=== PATIENT | female | born 1945 | race Caucasian/White ===

== ENCOUNTER 2020-09-04 18:31 | Emergency (ER) | payer MEDICARE, BC ==
[~2020-09-04 18:31] MED LIST: BUTALB-ACETAMI1 EACH PO
[2020-09-04] MEDS ORDERED: HYDROCODON-ACE1 EAC4 PO (20:10)
== END 2020-09-04 20:24 | disposition home or self-care (01) ==
LOC: ER1 18:31
DX: S22.41XA Multiple fractures of ribs, right side, initial encounter for closed fracture (principal); I10 Essential (primary) hypertension; W01.0XXA Fall on same level from slipping, tripping and stumbling without subsequent striking against object, initial encounter; Y92.009 Unspecified place in unspecified non-institutional (private) residence as the place of occurrence of the external cause
CPT/HCPCS: 71111; 99283

== ENCOUNTER 2020-09-09 14:05 | Emergency (ER) | payer MEDICARE, BC ==
[~2020-09-09 14:05] MED LIST changes: +HYDROCODON-ACE1 EAC4 PO
[2020-09-09 15:25] LABS: HEMOGLOBIN 14.1 gm/dl (12.3-15.3); RED BLOOD COUNT 4.86 M/UL (4.00-5.10); WHITE BLOOD COUNT 11.2 K/UL (4.5-11.0)
[2020-09-09 15:47] LABS: BUN/CREATININE RATIO 22 (0-10)
== END 2020-09-09 20:42 | disposition home or self-care (01) ==
LOC: ER1 14:05
DX: S22.41XA Multiple fractures of ribs, right side, initial encounter for closed fracture (principal); K62.5 Hemorrhage of anus and rectum; I10 Essential (primary) hypertension; Z79.01 Long term (current) use of anticoagulants; W19.XXXA Unspecified fall, initial encounter; Z85.3 Personal history of malignant neoplasm of breast
CPT/HCPCS: 80053; 85025; 99284; Q9967

== ENCOUNTER 2020-12-13 11:27 | Emergency (ER) | payer MEDICARE, BC ==
[2020-12-13 12:32] LABS: HEMOGLOBIN 14.3 gm/dl (12.3-15.3); RED BLOOD COUNT 4.91 M/UL (4.00-5.10); WHITE BLOOD COUNT 9.2 K/UL (4.5-11.0)
[2020-12-13 13:20] LABS: BUN/CREATININE RATIO 21 (0-10)
[2020-12-13] MEDS ORDERED: ELIQUIS5 MG PO (15:49)
[2020-12-13] MEDS ORDERED: LOPRESSOR 25 MG25 MG PO (15:49)
== END 2020-12-13 16:31 | disposition home or self-care (01) ==
LOC: ER1 11:27
PROVIDERS: Emergency Medicine
DX: I48.91 Unspecified atrial fibrillation (principal); I10 Essential (primary) hypertension; Z85.3 Personal history of malignant neoplasm of breast; Z20.822 Contact with and (suspected) exposure to COVID-19
CPT/HCPCS: 71045; 80053; 81001; 82550; 82553; 83605; 83690; 84484; 85025; 85610; 85730; 99285; Q9967; U0002

== ENCOUNTER → 2021-01-13 | Outpatient (CLI) | payer MEDICARE, BC ==
[~2021-01-13] MED LIST changes: +ELIQUIS5 MG PO; +LOPRESSOR 25 MG25 MG PO
== END ==
LOC: HEART 5 12:51
DX: I48.91 Unspecified atrial fibrillation (principal); I37.1 Nonrheumatic pulmonary valve insufficiency; I27.20 Pulmonary hypertension, unspecified
CPT/HCPCS: 93306

== ENCOUNTER → 2021-01-27 | Outpatient (CLI) | payer MEDICARE, BC | LOC: HEART 5 07:19 | DX: I25.10 Atherosclerotic heart disease of native coronary artery without angina pectoris (principal) | CPT/HCPCS: 78452; A9502; J2785 ==